=== PATIENT | female | born 1975 | race Hispanic/Latino ===

== ENCOUNTER 2020-04-23 09:14 | Outpatient (CLI) | payer OTHER, SELFPAY ==
[2020-04-23 09:37] LABS: Hemoglobin 12.7 g/dL (12.0-15.0); Mean Corpuscular HGB Conc 31.8 g/dl (32-36); Mean Corpuscular Hemoglobin 25.2 pg (26-34); Mean Corpuscular Volume 79.5 fl (80-100); Mean Platelet Volume 11.5 fl (7.4-10.4); Platelet Count Result 301 k/mm3 (150-375); Red Blood Count 5.03 M/mm3 (4.2-5.4); Red Cell Distribution Width 13.8 % (11.5-14.5); White Blood Count 11.3 K/mm3 (4.5-10.0)
[2020-04-23 09:43] LABS: Add Urine Microscopic? YES; Appearance Urine Clear (Clear); Bilirubin Urine Negative (Negative); Blood Urine 1+ (Negative); Color Urine Colorless (Yellow); Glucose Urine UA Negative (Negative); Ketones Urine Negative (Negative); Leukocyte Esterase Ur 1+ LEU/UL (NEGATIVE); Mucus Urine Rare /lpf; Nitrate Urine Negative (Negative); Protein Urine Negative (Negative); RBC Urine 0-2 /hpf (0-2); Specific Grav Ur 1.008 (1.001-1.035); Squamous Epithelial Cell Urine Many /hpf (Few); Urobilinogen Urine Negative mg/dL (<2.0); WBC Urine 0-3 /hpf (0-3)
[2020-04-23 09:47] LABS: Cholesterol 149 mg/dL (0-200); HDL Direct 33 mg/dL; Triglycerides 178 mg/dL (<150)
[2020-04-23 09:58] LABS: LDL Cholesterol Direct 80 mg/dL
[2020-04-23 10:17] LABS: Creatinine Urine 22.2 mg/dL
[2020-04-23 10:24] LABS: MALB Creatinine Ratio < 27.0 mg/g (0-30); Microalbumin Urine Random < 6.0 mg/L (0-16.7)
[2020-04-23 11:28] LABS: Hemoglobin A1C 11.1 % (<5.7)
== END 2020-04-23 09:15 | disposition home or self-care (01) ==
LOC: ANHLAB 09:21
PROVIDERS: PCP Obstetrics & Gynecology; Visit Provider Emergency Medicine
DX: D72.829 Elevated white blood cell count, unspecified (principal); E11.9 Type 2 diabetes mellitus without complications; R31.9 Hematuria, unspecified
CPT/HCPCS: 36415; 80061; 81001; 82043; 83036; 85027

== ENCOUNTER 2020-08-13 09:57 | Outpatient (CLI) | payer OTHER, SELFPAY ==
[2020-08-13 10:56] LABS: Hematocrit 39.3 % (37.0-47.0); Hemoglobin 12.6 g/dL (12.0-15.0); Mean Corpuscular HGB Conc 32.1 g/dl (32-36); Mean Corpuscular Hemoglobin 25.9 pg (26-34); Mean Corpuscular Volume 80.9 fl (80-100); Mean Platelet Volume 11.8 fl (7.4-10.4); Platelet Count Result 301 k/mm3 (150-375); Red Blood Count 4.86 M/mm3 (4.2-5.4); Red Cell Distribution Width 14.6 % (11.5-14.5); White Blood Count 10.4 K/mm3 (4.5-10.0)
[2020-08-13 11:32] LABS: Hemoglobin A1C 7.4 % (<5.7)
[2020-08-13 11:48] LABS: Creatinine Urine 34.3 mg/dL
[2020-08-13 12:50] LABS: MALB Creatinine Ratio < 17.5 mg/g (0-30); Microalbumin Urine Random < 6.0 mg/L (0-16.7)
== END 2020-08-13 09:58 | disposition home or self-care (01) ==
PROVIDERS: PCP Emergency Medicine; Visit Provider Emergency Medicine
DX: D72.829 Elevated white blood cell count, unspecified (principal); E11.9 Type 2 diabetes mellitus without complications
CPT/HCPCS: 36415; 82043; 83036; 85027

== ENCOUNTER 2020-08-20 08:47 | Outpatient (CLI) | payer OTHER, SELFPAY ==
[2020-08-20 09:27] LABS: Hematocrit 40.2 % (37.0-47.0); Hemoglobin 12.5 g/dL (12.0-15.0); Mean Corpuscular HGB Conc 31.1 g/dl (32-36); Mean Corpuscular Hemoglobin 25.7 pg (26-34); Mean Corpuscular Volume 82.7 fl (80-100); Mean Platelet Volume 11.9 fl (7.4-10.4); Platelet Count Result 318 k/mm3 (150-375); Red Blood Count 4.86 M/mm3 (4.2-5.4); Red Cell Distribution Width 14.4 % (11.5-14.5); White Blood Count 10.6 K/mm3 (4.5-10.0)
[2020-08-20 09:42] LABS: Alanine Aminotransferase 13 U/L (4-35); Albumin Level 4.5 g/dL (3.5-5.1); Alkaline Phosphatase 108 U/L (38-126); Anion Gap 9 mmol/L (8-16); Aspartate Amino Transferase 21 U/L (14-36); Bilirubin,Total 0.3 mg/dL (0.2-1.3); Blood Urea Nitrogen 19 mg/dL (7-17); Calcium 9.3 mg/dL (8.4-10.2); Carbon Dioxide 30 mmol/L (22-30); Chloride 104 mmol/L (98-107); Estimated Glomerular Filt Rate > 60; Glucose 138 mg/dL (65-105); Potassium 4.3 mmol/L (3.4-5.0); Sodium 143 mmol/L (137-145)
[2020-08-20 10:43] LABS: Hepatitis B Surface Antigen Negative (Negative)
[2020-08-20 10:52] LABS: HAV RESULT Negative (Negative); Hepatitis B Core IgM Result Negative (Negative)
[2020-08-20 11:00] LABS: Hepatitis C Virus Antibody Negative (Negative)
[2020-08-24 05:46] LABS: GGT 24 U/L (3-55)
== END 2020-08-20 08:48 | disposition home or self-care (01) ==
PROVIDERS: PCP Emergency Medicine; Visit Provider Emergency Medicine
DX: R94.5 Abnormal results of liver function studies (principal); D72.829 Elevated white blood cell count, unspecified
CPT/HCPCS: 36415; 80053; 80074; 82977; 85027

== ENCOUNTER 2020-10-16 07:58 | Outpatient (CLI) | payer OTHER, SELFPAY ==
--- NOTE | ~2020-10-16 | US_ITS ---
EXAMINATION: US right upper quadrant DATE: 10/16/2020 08:46 INDICATION: Elevated liver enzymes TECHNIQUE: Multiple grayscale and Doppler ultrasound images of the abdomen were obtained. COMPARISON: None available FINDINGS: Bowel gas obscures visualization of the pancreas. The visualized portions of the pancreas a re unremarkable. The liver is normal with normal echogenicity and echotexture. No surface nodularity. Normal hepatopetal flow in the main portal vein. The gallbladder is normal with no abnormal wall thi ckening, pericholecystic fluid or stones. The normal common bile duct measures 5 mm. There was no son ographic Alberto sign. IMPRESSION: 1. No sonographic correlate for the patient's symptoms. Reviewed, dictated and finalized at location A. CONTROL FIELD REPRESENTATIVE
== END 2020-10-16 07:59 | disposition home or self-care (01) ==
PROVIDERS: PCP Emergency Medicine; Visit Provider Emergency Medicine
DX: R94.5 Abnormal results of liver function studies (principal)
CPT/HCPCS: 76705

== ENCOUNTER 2020-11-19 07:17 | Outpatient (CLI) | payer OTHER, SELFPAY ==
[2020-11-19 07:45] LABS: Hematocrit 39.9 % (37.0-47.0); Hemoglobin 12.6 g/dL (12.0-15.0); Mean Corpuscular HGB Conc 31.6 g/dl (32-36); Mean Corpuscular Hemoglobin 25.7 pg (26-34); Mean Corpuscular Volume 81.4 fl (80-100); Mean Platelet Volume 11.5 fl (7.4-10.4); Platelet Count Result 301 k/mm3 (150-375); Red Cell Distribution Width 14.6 % (11.5-14.5); White Blood Count 11.1 K/mm3 (4.5-10.0)
[2020-11-19 07:55] LABS: Alanine Aminotransferase 13 U/L (4-35); Albumin Level 4.2 g/dL (3.5-5.1); Alkaline Phosphatase 104 U/L (38-126); Anion Gap 4 mmol/L (8-16); Aspartate Amino Transferase 21 U/L (14-36); Bilirubin,Total 0.4 mg/dL (0.2-1.3); Blood Urea Nitrogen 10 mg/dL (7-17); Calcium 9.3 mg/dL (8.4-10.2); Carbon Dioxide 32 mmol/L (22-30); Chloride 102 mmol/L (98-107); Estimated Glomerular Filt Rate > 60; Glucose 180 mg/dL (65-105); Potassium 4.4 mmol/L (3.4-5.0); Sodium 138 mmol/L (137-145)
[2020-11-19 08:52] LABS: Hepatitis B Surface Antigen Negative (Negative)
[2020-11-19 08:58] LABS: HAV RESULT Negative (Negative); Hepatitis B Core IgM Result Negative (Negative)
[2020-11-19 09:10] LABS: Hepatitis C Virus Antibody Negative (Negative)
== END 2020-11-19 07:18 | disposition home or self-care (01) ==
LOC: ANHLAB 07:20
PROVIDERS: PCP Emergency Medicine; Visit Provider Emergency Medicine
DX: R94.5 Abnormal results of liver function studies (principal); D72.829 Elevated white blood cell count, unspecified
CPT/HCPCS: 36415; 80053; 80074; 85027

== ENCOUNTER → 2021-11-07 15:20 | Outpatient (CLI) | payer OTHER, SELFPAY ==
--- NOTE | ~2021-11-07 | MM_ITS ---
EXAMINATION: MM screening adam BI w kelley HISTORY: Screening mammogram TECHNIQUE: Craniocaudal and mediolateral oblique 3-D tomosynthesis images were obtained and synthetic 2-D images were generated. CAD analysis was submitted and interpreted. COMPARISON: No prior mammogram is available for comparison at this institution. BREAST PARENCHYMAL COMPOSITION: There are scattered areas of fibroglandular density. FINDINGS: RIGHT BREAST: An asymmetry is present in the anterior/middle third of the outer breast 5 cm from the nipple on the craniocaudal view. LEFT BREAST: There is focal asymmetry in the posterior third of the outer breast. IMPRESSION: 1. Bilateral breast findings as described above which may represent the patient's baseline however no comparison is currently available. 2. Comparison with prior mammograms is necessary. BI-RADS Category 0: Incomplete: Needs comparison with prior mammograms. Reviewed, dictated and finalized at location A. TAL SOLUTION ARCHITECT IMPRESSION: 1. Bilateral breast findings as described above which may represent the patient 's baseline however no comparison is currently available. 2. Comparison with prior mammograms is necessary. BI-RADS Category 0: Incomplete: Needs comparison with prior mammograms.
== END ==
PROVIDERS: Visit Provider Obstetrics & Gynecology
DX: Z12.31 Encounter for screening mammogram for malignant neoplasm of breast (principal); R92.8 Other abnormal and inconclusive findings on diagnostic imaging of breast
CPT/HCPCS: 77063; 77067

== ENCOUNTER 2022-02-03 07:43 | Outpatient (CLI) | payer OTHER, SELFPAY ==
[2022-02-03 08:21] LABS: Hematocrit 43.3 % (37.0-47.0); Hemoglobin 13.6 g/dL (12.0-15.0); Mean Corpuscular HGB Conc 31.4 g/dl (32-36); Mean Corpuscular Hemoglobin 25.7 pg (26-34); Mean Corpuscular Volume 81.9 fl (80-100); Mean Platelet Volume 11.9 fl (7.4-10.4); Platelet Count Result 288 k/mm3 (150-375); Red Blood Count 5.29 M/mm3 (4.2-5.4); Red Cell Distribution Width 14.1 % (11.5-14.5); White Blood Count 10.4 K/mm3 (4.5-10.0)
[2022-02-03 08:28] LABS: Alanine Aminotransferase 12 U/L (4-35); Albumin Level 4.4 g/dL (3.5-5.1); Alkaline Phosphatase 155 U/L (38-126); Anion Gap 6 mmol/L (8-16); Aspartate Amino Transferase 19 U/L (14-36); Bilirubin,Total 0.4 mg/dL (0.2-1.3); Blood Urea Nitrogen 14 mg/dL (7-17); Calcium 9.2 mg/dL (8.4-10.2); Carbon Dioxide 30 mmol/L (22-30); Chloride 97 mmol/L (98-107); Cholesterol 251 mg/dL (0-200); Estimated Glomerular Filt Rate > 60; Glucose 290 mg/dL (65-110); HDL Direct 39 mg/dL; Potassium 4.2 mmol/L (3.4-5.0); Sodium 133 mmol/L (137-145); Triglycerides 354 mg/dL (<150)
[2022-02-03 08:34] LABS: Add Urine Microscopic? YES; Appearance Urine Cloudy (Clear); Bacteria Urine Trace /hpf; Bilirubin Urine Negative (Negative); Blood Urine 1+ (Negative); Color Urine Straw (Yellow); Glucose Urine UA 3+ mg/dL (Negative); Ketones Urine Negative (Negative); Leukocyte Esterase Ur 2+ LEU/UL (NEGATIVE); Mucus Urine Rare /lpf; Nitrate Urine Negative (Negative); Protein Urine Negative (Negative); Specific Grav Ur 1.011 (1.001-1.035); Squamous Epithelial Cell Urine Many /hpf (Few); Urobilinogen Urine Negative mg/dL (<2.0)
[2022-02-03 08:37] LABS: MALB Creatinine Ratio 39.3 mg/g (0-30)
[2022-02-03 08:39] LABS: LDL Cholesterol Direct 130 mg/dL
[2022-02-03 09:06] LABS: Hemoglobin A1C 12.4 % (<5.7)
[2022-02-03 09:36] LABS: Free T4 Free Thyroxine 1.25 ng/mL (0.78-2.19); Vitamin D 25 Hydroxy 31.6 ng/mL
== END 2022-02-03 07:44 | disposition home or self-care (01) ==
LOC: ANHLAB 07:45
PROVIDERS: Visit Provider Emergency Medicine
DX: Z00.00 Encounter for general adult medical examination without abnormal findings (principal); E11.9 Type 2 diabetes mellitus without complications; I10 Essential (primary) hypertension; E78.5 Hyperlipidemia, unspecified; D72.829 Elevated white blood cell count, unspecified; E55.9 Vitamin D deficiency, unspecified
CPT/HCPCS: 36415; 80053; 80061; 81001; 82043; 82306; 83036; 84439; 84443; 85027; 87086; 87088

== ENCOUNTER → 2022-03-17 08:22 | Outpatient (CLI) | payer OTHER, SELFPAY ==
--- NOTE | ~2022-03-17 | US_ITS ---
EXAMINATION: US right upper quadrant DATE: 03/17/2022 08:54 INDICATION: Elevated liver enzymes. TECHNIQUE: Multiple grayscale and Doppler ultrasound images of the right upper quadrant were obtained . COMPARISON: None available FINDINGS: Visualized portions of the pancreas are normal. The liver is normal with normal echogenicit y and echotexture. No surface nodularity. Normal hepatopetal flow in the main portal vein. The gallbl adder is normal with no abnormal wall thickening, pericholecystic fluid or stones. The normal common bile duct measures 0.4 cm. There was no sonographic Alberto sign. The visualized portions of the aorta and inferior vena cava are normal. The right kidney measures 11.5 cm. IMPRESSION: 1. Normal right upper quadrant sonogram findings. Reviewed, dictated and finalized at location K.
== END ==
PROVIDERS: PCP Emergency Medicine; Visit Provider Emergency Medicine
DX: R74.01 Elevation of levels of liver transaminase levels (principal)
CPT/HCPCS: 76705

== ENCOUNTER 2022-03-17 08:59 | Outpatient (CLI) | payer OTHER, SELFPAY ==
[2022-03-17 09:26] LABS: Hematocrit 37.5 % (37.0-47.0); Hemoglobin 11.9 g/dL (12.0-15.0); Mean Corpuscular HGB Conc 31.7 g/dl (32-36); Mean Corpuscular Hemoglobin 25.8 pg (26-34); Mean Corpuscular Volume 81.2 fl (80-100); Mean Platelet Volume 11.3 fl (7.4-10.4); Platelet Count Result 333 k/mm3 (150-375); Red Blood Count 4.62 M/mm3 (4.2-5.4); Red Cell Distribution Width 13.7 % (11.5-14.5); White Blood Count 10.6 K/mm3 (4.5-10.0)
[2022-03-17 09:46] LABS: Add Urine Microscopic? YES; Appearance Urine Clear (Clear); Bilirubin Urine Negative (Negative); Blood Urine 1+ (Negative); Color Urine Yellow (Yellow); Glucose Urine UA 2+ mg/dL (Negative); Ketones Urine Negative (Negative); Leukocyte Esterase Ur 2+ LEU/UL (NEGATIVE); Nitrate Urine Negative (Negative); Protein Urine Negative (Negative); Urobilinogen Urine 0.2 mg/dL (<2.0)
[2022-03-17 09:53] LABS: Bacteria Urine Trace /hpf; Mucus Urine Rare /lpf; Squamous Epithelial Cell Urine Many /hpf (Few)
[2022-03-17 10:26] LABS: Hepatitis B Surface Antigen Negative (Negative)
[2022-03-17 10:32] LABS: HAV RESULT Negative (Negative); Hepatitis B Core IgM Result Negative (Negative)
[2022-03-17 10:44] LABS: Hepatitis C Virus Antibody Negative (Negative)
== END 2022-03-17 09:00 | disposition home or self-care (01) ==
LOC: ANHLAB 09:01
PROVIDERS: PCP Emergency Medicine; Visit Provider Emergency Medicine
DX: R94.5 Abnormal results of liver function studies (principal)
CPT/HCPCS: 36415; 80074; 81001; 85027

== ENCOUNTER 2023-01-08 14:45 | Outpatient (CLI) | payer OTHER, SELFPAY ==
[2023-01-08 15:11] LABS: Basophils Absolute Auto 0.1 K/mm3 (0.0-0.1); Basophils Percent Auto 0.5 % (0.2-1.2); Eosinophils Absolute Auto 0.2 K/mm3 (0-0.3); Eosinophils Percent Auto 1.6 % (0-4.4); Hematocrit 40.8 % (37.0-47.0); Hemoglobin 12.9 g/dL (12.0-15.0); Immature Granulocyte Absolute 0.04 K/mm3 (0.00-0.031); Immature Granulocyte Percent A 0.3 % (0-0.5); Lymphocytes Absolute Auto 2.71 K/mm3 (0.9-3.2); Lymphocytes Percent Auto 23.7 % (18.3-44.2); Mean Corpuscular HGB Conc 31.6 g/dl (32-36); Mean Corpuscular Hemoglobin 25.5 pg (26-34); Mean Corpuscular Volume 80.8 fl (80-100); Monocytes Absolute Auto 0.8 K/mm3 (0.1-0.6); Monocytes Percent Auto 6.6 % (2.6-8.5); Neutrophils Absolute Auto 7.7 K/mm3 (1.3-6.7); Neutrophils Percent Auto 67.3 % (45.5-73.1); Platelet Count Result 319 k/mm3 (150-375); Red Blood Count 5.05 M/mm3 (4.2-5.4); Red Cell Distribution Width 14.6 % (11.5-14.5); White Blood Count 11.4 K/mm3 (4.5-10.0)
[2023-01-08 16:59] LABS: Alanine Aminotransferase 19 U/L (6-35); Albumin Level 4.6 g/dL (3.5-5.1); Alkaline Phosphatase 103 U/L (38-126); Anion Gap 11 mmol/L (8-16); Aspartate Amino Transferase 27 U/L (14-36); Bilirubin,Total 0.3 mg/dL (0.2-1.3); Blood Urea Nitrogen 22 mg/dL (7-17); CRP 1.7 mg/dL (<1.0); Calcium 9.3 mg/dL (8.4-10.2); Carbon Dioxide 28 mmol/L (22-30); Chloride 100 mmol/L (98-107); Estimated Glomerular Filt Rate > 60; Glucose 122 mg/dL (65-110); Potassium 3.8 mmol/L (3.4-5.0); Sodium 139 mmol/L (137-145)
[2023-01-08 17:08] LABS: Erythrocyte Sedimentation Rate 13 mm/hr (0-20)
== END 2023-01-08 14:46 | disposition home or self-care (01) ==
LOC: ANHLAB 14:48
PROVIDERS: PCP Emergency Medicine; Visit Provider Internal Medicine Hematology & Oncology
DX: D72.829 Elevated white blood cell count, unspecified (principal)
CPT/HCPCS: 36415; 80053; 85025; 85652; 86140; 88184

== ENCOUNTER 2025-04-17 07:44 | Outpatient (CLI) | payer OTHER, SELFPAY ==
--- OUTSIDE RECORDS SUMMARY | 2025-04-17 07:48 | XMS_ITS | Clinical Summary ---
Author Organization [facility] Address [address] [place] [id number] Phone Care Team Providers Care Sagger Maker Name Role Phone Tobias Ackerman MD Primary Care Provider [phone] Allergies No known active allergies Medications Iron, Ferrous Sulfate, 325 (65 Fe) MG tablet Take 35 mg by mouth daily Active aspirin (ST MIMA) 81 MG EC tablet Take 81 mg by mouth daily Active isosorbide mononitrate (IMDUR) 30 MG 24 hr tablet TAKE 1 TABLET BY MOUTH ONCE DAILY IN THE MORNING 2 Active fenofibrate (TRICOR) 145 MG tablet Take 145 mg by mouth 1 (one) time each day 2 Active Dapagliflozin Propanediol 10 MG tablet Take 10 mg by mouth daily Active simvastatin (ZOCOR) 40 MG tablet Take 40 mg by mouth every night Active albuterol HFA (PROVENTIL HFA) 108 (90 Base) MCG/ACT inhaler Inhale 2 puffs every 6 (six) hours if needed for wheezing Active lisinopril-hydro CHLOROthiazide (PRINZIDE) 20-25 MG per tablet Take 1 tablet by mouth 1 (one) time each day Active Vitamin D, Cholecalciferol, 50 MCG (2000 UT) capsule Take by mouth daily Active metFORMIN (GLUCOPHAGE) 1000 MG tablet Take 1,000 mg by mouth in the morning and 1,000 mg in the evening. Take with meals. Active carvedilol (COREG) 25 MG tablet Take 25 mg by mouth in the morning and 25 mg in the evening. Take with meals. Active Active Problems Problem Noted Date Diagnosed Date Anemia in chronic kidney disease 12/18/2022 Proteinuria 06/02/2020 Diabetes mellitus 05/02/2020 Vitamin D deficiency Chronic kidney disease stage 2 Essential hypertension Resolved Problems Problem Noted Date Diagnosed Date Resolved Date Hyperlipidemia 05/02/2020 12/18/2022 Social History Tobacco Use Types Packs/Day Years Used Date Smoking Tobacco: Never Smokeless Tobacco: Never Tobacco Cessation:Counseling Given: Not Answered Alcohol Use Standard Drinks/Week Comments Never 0 (1 standard drink = 0.6 oz pur e alcohol) Comments Unknown Sex and Gender Information Value Date Recorded Sex Assigned at Not on file Legal Sex Female 1:40 PM MDT Gender Identity Not on file Sexual Orientation Not on file Last Filed Vital Signs Vital Sign Reading Time Taken Comments Blood Pressure 132/68 07/30/2023 4:51 PM CDT Pulse 64 07/30/2023 4:51 PM CDT Temperature - - Respiratory Rate - - Oxygen Saturation 94% 07/30/2023 4:51 PM CDT Inhaled Oxygen Concentration - - Weight 64.9 kg (143 lb) 07/30/2023 4:51 PM CDT Height 149.9 cm (4' 11) 07/30/2023 4:51 PM CDT Body Mass Index 28.88 07/30/2023 4:51 PM CDT Plan of Treatment Health Maintenance Due Date Last Done Comments Diabetic Foot Exam 1984 Ophthalmology Exam 1984 Pneumococcal PPSV23 Highest Risk Adult (1 of 3 - PCV13 ) 1993 Influenza Vaccine (Season Ended) 2025 Insurance Care Teams Sagger Maker Relationship Specialty Start Date End Date Tobias Ackerman MD PCP - General 03/13/22
--- OUTSIDE RECORDS SUMMARY | 2025-04-17 07:48 | XMS_ITS | Clinical Summary ---
[facility] Organization [facility] [address] [place] [address] Care Team Providers Care Mine Safety Director Name Role Phone Tobias Ackerman MD Primary Care Provider [phone] Allergies No known active allergies Medications isosorbide mononitrate ER (IMDUR) 30 mg 24 hr tablet Take 30 mg by mouth daily. Active ferrous sulfate 325 mg (65 mg of elemental iron) tabletIndication s:Iron Deficiency Anemia Take 65 mg of elemental iron by mouth daily with breakfast. Active lisinopril-hydro CHLOROthiazide (PRINZIDE,ZESTOR ETIC) 20-25 mg per tabletIndication s:hypertension Take 1 tablet by mouth daily. Active metFORMIN (GLUCOPHAGE) 500 mg tablet Take 500 mg by mouth 2 (two) times a day with meals. Active aspirin 81 mg tablet Take 81 mg by mouth daily. Active HYDROcodone-acet aminophen (NORCO) 5-325 mg per tabletIndication s:Pain Take 1 tablet by mouth every 4 (four) hours as needed for pain. 15 tablet 8 Active Additional Information Patient not taking.Reported on 03/03/2018 Active Problems Problem Noted Date Diagnosed Date Umbilical hernia with obstruction, without gangr jennifer 02/20/2018 Overview (02/20/2018): Added automatically from request for surgery [id number] Surgical History Surgery Date Site/Laterality Comments SECTION 3 children TUBAL LIGATION HERNIA REPAIR 02/24/[address] repair per Dr. Sheehan. Medical History Medical History Date Comments Asthma Diabetes mellitus (HCC) Hypertension Family History Medical History Relation Name Comments No Known Problems Mother Relation Name Status Comments Mother Alive Social History Tobacco Use Types Packs/Day Years Used Date Smoking Tobacco: Never Smokeless Tobacco: Never Alcohol Use Standard Drinks/Week Comments Yes 0 (1 standard drink = 0.6 oz pur e alcohol) social Comments No Sex and Gender Information Value Date Recorded Sex Assigned at Not on file Legal Sex Female 1:18 PM CDT Gender Identity Not on file Sexual Orientation Not on file Obstetrics History Last Filed Vital Signs Vital Sign Reading Time Taken Comments Blood Pressure 155/99 09/02/2021 11:04 PM CDT Pulse 111 09/02/2021 11:04 PM CDT Temperature 36.9 C (98.5 F) 09/02/2021 11:04 PM CDT Respiratory Rate 20 09/02/2021 11:04 PM CDT Oxygen Saturation 94% 09/02/2021 11:04 PM CDT Inhaled Oxygen Concentration - - Weight 64.4 kg (142 lb) 09/02/2021 11:04 PM CDT Height 152.4 cm (5') 09/02/2021 11:04 PM CDT Body Mass Index 27.73 09/02/2021 11:04 PM CDT Plan of Treatment Health Maintenance Due Date Last Done Comments Cervical Cancer Screening 1974 Colon Cancer Screening-Colonoscopy 1974 Depression Screening 1974 Hepatitis C Screening 1974 Hepatitis B Screening 1992 Regular Well Visit/Exam 18-64 1992 Breast Cancer Screening-Mammogram 03/22/2024 03/22/2023, 11/13/2021, 11/10/2021, Additional history exists Covid-19 Vaccine (2 - 2023-2 5 season) 2024 09/16/2021 Zoster Vaccine (1 of 2) 2024 Influenza Vaccine (Season Ended) 2025 10/08/2016, 09/07/2015, 08/23/2015, Additional history exists DTaP/Tdap/Td Vaccine (3 - Td or Tdap) 05/08/2027 05/08/2017, 04/08/2007 Pneumococcal vaccine <65 Completed 022, 08/12/2013, 11/05/2012, Additional history exists Medical Devices Implanted Type Area National Facilities Manager Device Identifier Shelf Expiration Date Model / Serial / Lot Patch Surgical Ventralex St Sepra Sorbaflex Polypropylene Hydrogel Large [place] Od3.2 In Spring Open Bioresorbable Strap Tension Free Sterile Umbilical Hernia Repair - [id number] Implanted:Qty: 1 on 02/24/2018 by Juliet Sheehan MD at [facility] N/A: Abdomen [employer]/C R Bard 01/01/2020 [id number] / / [id number] Insurance OPEN ACCESS [facility] CHOICE PLUS Care Teams Mine Safety Director Relationship Specialty Start Date End Date Tobias Ackerman MD PCP - General 02/06/20
--- OUTSIDE RECORDS SUMMARY | 2025-04-17 07:48 | XMS_ITS | Encounter Summary ---
Author Organization [facility] Address [address] [place] [address] Care Team Providers Care Firing Pin Gauger Name Role Phone Tobias Ackerman MD Primary Care Provider [phone] Reason for Visit * Reason Onset Date Comments Pre-op Clearance 10/01/2023 Encounter Details Date Type Department Care Team (Late st Contact Info) Description 10/01/2023 Telephone [facility] - SENIOR C[facility] MANAGER [address] [place] [address] Juliet West MD [address] [place] [address] Pre-op Clearance Social History Tobacco Use Types Packs/Day Years Used Date Smoking Tobacco: Never Passive Smoke Exposure: Never Smokeless Tobacco: Never Alcohol Use Standard Drinks/Week Comments Not Currently 0 (1 standard drink = 0.6 oz pur e alcohol) PHQ-2 Answer Date Recorded PHQ2 TOTAL SCORE 0 02/14/2023 Comments No Sex and Gender Information Value Date Recorded Sex Assigned at Not on file Legal Sex Female 9:35 AM PSYCHIATRIC NURSE PRACTITIONER Gender Identity Not on file Sexual Orientation Not on file documented as of this encounter Miscellaneous Notes * Telephone Encounter - LizastephAlysa - 10/01/2023 9:07 AM CST I called and left a message at Dr Colin Rosa office to follow up on a medical clearance request for patient surgery for 10/08/[address] West[address]I have requested a call back Patient has an appointment at [facility] for today for her pre op labs HIATRIC NURSE PRACTITIONER documented in this encounter Plan of Treatment Not on file documented as of this encounter Visit Diagnoses Not on filedocumented in this encounter Care Teams Firing Pin Gauger Relationship Specialty Start Date End Date Tobias Ackerman MD [address] [place] [id number] PCP - General 05/04/20 documented as of this encounter
--- OUTSIDE RECORDS SUMMARY | 2025-04-17 07:48 | XMS_ITS | Data Portability ---
Author Organization [facility] [place] Address [address] [place] [address] [address] Care Team Providers Care Strategic Marketing Specialist Name Role Phone HUNTER GASTELUM Primary Care Provider Assessment Encounter Date Assessment Date Assessment LastModified by Organization Details LastModified Time 08/21/2021 08/21/2021 healthy female exam/menopause patient declinesstd testing pap done mammogram ordered and encouraged colonoscopy discussed and encouraged, have name from PCP dexa baseline around 54 since early menopause Encouraged weight bearing exercise and 1500mg daily of Calcium with Vitamin D plans to return to [facility] for treatment of procidentia, encouraged this. FU 1 year or prn [id number] Not available 08/21/2021 18:19:31 12/26/2022 12/26/2022 healthy female exam/menopause patient declines std testing pap next year mammogram ordered and encouraged colonoscopy due 2031 dexa baseline 55-60 (early menopause) Encouraged weight bearing exercise and 1500mg daily of Calcium with Vitamin D referral back to u urogyn FU 1 year or prn [email or web address] Not available 12/26/2022 15:58:38 02/27/2024 02/27/2024 Annual gynecological exam performed. Patient will come back in a year unless there are new symptoms. Not available 02/27/2024 18:28:39 Plan of Treatment Reminders Order Date Submit Date Provider Last Modified By Organization Details Last Modified Time Details Appointments None recorded. Lab None recorded. Referral None recorded. Procedures None recorded. Surgeries None recorded. Imaging MAMMO, screening, bilateral 2023 024 [facility], [address], [address], [place], [address], 4 10:04:20 Medication Orders None recorded. Patient TargetsNo targets recorded. Patient InstructionsNo instructions recorded. Reason for Referral None Reported. Results Created Date Observation Date Name Description Value Unit Range Abnormal Flag Note LastModifiedBy Organization Detail LastModifiedTime 08/21/20 21 08/21/2021 IMAGE GUIDE D PAP AND HPV REGAR DLESS image guided Pap, HPV regardless of Pap result SEE RESULT S BELOW CASE REPOR T: Cytol ogy Gynec ologi ilan Repor t Case: [id number] [place] anand Provi naomi: Cally Oconnor MD Colle cted: 08/21 1716 Order ing Locat ion: [place] [facility] Recei antonietta: 08/22 0031 First Scree n: Heather Kowalski, CT Speci men: Scree christopher Pap - Image d, Cervi x STATE MENT OF ADEQU ACY: Satis facto ry for evalu ation Trans forma tion zone compo nent prese nt FINAL DIAGN OSIS: Negat rina for Intra epith elial Lesio n or Flako zamarripa (NIL) . Elect olive ricketts d by Heather Kowalski, CT on 08/25 at 4:11 PM ----- ----- ----- ----- ----- ----- ----- ----- ----- ----- ----- ----- ----- ----- ----- ----- ----- ---- HPV RESUL TS: HPV mRNA E6/E7 : No HPV mRNA Detec goldie NOTE: This high risk HPV mRNA assay detec ts fourt een high- risk HPV types (16, 18, 31, 33, 35, 39, 45, 51, 52, 56, 58, 59, 66, 68) witho ut diffe renti ation . COMME NT: Note: This speci men was revie wed by a Cytot echno logis t and/o r Patho logis t (as indic ated in this repor t) after evalu ation using the Thinp rep Imagi ng Syste m. CLINI ILAN INFOR MATIO N: Menst rual Statu s: LMP (if appli cable ): Clini ilan Histo ry/Pr eviou s Pap: Type of Neopl lisa (if appli cable ): Signi fican t Clini ilan Findi ngs: Other Histo ry: Hormo loly (if appli cable ): PAP EDUCA JULIAN L NOTE: The Pap Test is a scree christopher test with an inher ent false negat rina rate. Liqui d-bas e sampl ing may decre ase, but will not elimi crescencio, false negat rina resul ts. A negat rina resul t does not precl ude the prese nce and/o r devel opmen t of disea se, since the prese nce of abnor mal cells in the sampl e depen ds on the locat ion of the lesio n and sampl ing techn ique. [place] nued regul ar scree christopher is the best metho d of cance r preve ntion . If repor goldie cytol ogic findi ng do not corre late with physi ilan and/o r histo rical findi ngs, furth er inves tigat ion is recom suma d, as clini estephania bennett nted. Not Available [facility] (Lab) [address], [place], [address], 08/25/2021 17:14:03 11/08/19 22 11/07/2021 MAMMO , scree christopher, bilat eral No observ ation [facility] ed. [facility] [address], [place], [address], 11/14/2021 17:02:21 11/08/19 22 11/07/2021 MAMMO , scree christopher, bilat eral No observ ation record ed. greta [facility] [address], [place], [address], 11/08/2021 11:53:24 11/10/19 22 11/07/2021 MAMMO , scree christopher, bilat eral No observ [facility]ion [facility]. [facility] [address], [place], [address], 11/15/2021 16:18:28 11/13/19 22 11/07/2021 MAMMO , scree christopher, bilat eral No observ ation record ed. [email or web address] [facility] [address] [facility] [address], [place], [address], 11/14/2021 10:15:21 03/22/20 23 03/21/2023 MAMMO , scree christopher, bilat eral No observ ation record ed. [email or web address], [place], [address], 03/22/2023 10:10:20 Result Notes Documentation Provider Name and Address Organization Details Recorded Time Mammo, Screening, Bilateral : will have shireen call pt. speaks upper sorbian. L Jocelyn almanzar, [facility] 11/14/2021 17:02:21 Problems Name Problem SNOMED Code Status Onset Date Resolution Date Notes Provider Name and Address Organization Details Recorded Time Type 2 diabetes mellitus 12160338 Active 2020 Kristina almanzar, [facility] 3 21:43:23 Essential hypertensi on 09265768 Active 2020 Kristina mccloud null, [facility] 3 21:43:23 Third degree uterine prolapse 32081449 Active 2020 total procidentia Kristina mccloud null, [facility] 3 21:43:23 Problem Notes None recorded. Procedures Surgical History Date Name Laterality Status Provider Name and Address Organization Details Recorded Time 03/04/20 Date of Last Colonoscopy completed [facility] 12/26/2022 15:31:26 11/07/19 22 Date of Last Mammogram completed [facility] 12/26/2022 15:31:14 08/21/20 21 Date of Last Pap Smear completed [facility] 12/26/2022 09:40:12 delivery completed Cally Pascual MD [address], [place], [address], [facility] 08/21/2021 18:19:43 repair of hernia of anterior abdominal wall completed Cally Pascual MD [address], [place], [address], [facility] 08/21/2021 18:20:02 Imaging Results None recorded. Procedure Notes None recorded. Medical Equipment None Reported. Allergies No known drug allergies Medications Name Sig Start Date Stop Date Status Note LastModified by Organization Details LastModified Time amoxicillin 500 mg capsule TAKE 1 CAPSULE BY MOUTH EVERY 6 HOURS 02/26 completed Not Available Not Available Not Available metformin 500 mg tablet TAKE 2 TABLETS BY MOUTH TWICE DAILY WITH MORNING MEAL AND WITH EVENING MEAL active Not Available Not Available No t Available fluticasone 250 mcg-salmete rol 50 mcg/dose blistr powdr for inhalation INHALE 1 DOSE BY MOUTH TWICE DAILY active Not Available Not Available No t Available carvedilol 25 mg tablet TAKE 1 TABLET BY MOUTH TWICE DAILY WITH FOOD active Not Available Not Available No t Available glipizide ER 10 mg tablet, extended release 24 hr TAKE 1 TABLET BY MOUTH ONCE DAILY WITH BREAKFAST 02/26 completed Not Available Not Available Not Available isosorbide mononitrate ER 30 mg tablet,exte nded release 24 hr TAKE 1 TABLET BY MOUTH ONCE DAILY IN THE MORNING 02/26 completed Not Available Not Available Not Available peg-electro lyte solution 420 gram oral solution USE DIRECTED BY OFFICE 02/26 completed Not Available Not Available Not Available simvastatin 40 mg tablet TAKE 1 TABLET BY MOUTH ONCE DAILY IN THE EVENING active Not Available Not Available No t Available metformin 1,000 mg tablet TAKE 1 TABLET BY MOUTH TWICE DAILY WITH MEALS 02/26 completed Not Available Not Available Not Available promethazin e 25 mg tablet TAKE 1/2 (ONE-HALF ) TABLET BY MOUTH EVERY 6 HOURS NEEDED FOR NAUSEA 02/26 completed Not Available Not Available Not Available lisinopril 20 mg-hydrochl orothiazide 25 mg tablet TAKE 1 TABLET BY MOUTH ONCE DAILY active Not Available Not Available No t Available albuterol sulfate HFA 90 mcg/actuati on aerosol inhaler INHALE 2 PUFFS BY MOUTH EVERY 6 HOURS NEEDED active Not Available Not Available No t Available ferrous sulfate 325 mg (65 mg iron) tablet,hilary yed release TAKE 1 TABLET BY MOUTH ONCE DAILY 02/26 completed Not Available Not Available Not Available nitrofurant oin monohydrate /macrocryst als 100 mg capsule TAKE 1 CAPSULE BY MOUTH EVERY 12 HOURS WITH FOOD FOR 7 DAYS 02/26 completed Not Available Not Available Not Available aspirin 12/26 completed Not Available Not Available Not Available ferrous sulfate 02/26 completed Not Available Not Available Not Available carvedilol 02/26 completed Not Available Not Available Not Available simvastatin 02/26 completed Not Available Not Available Not Available lisinopril 02/26 completed Not Available Not Available Not Available glipizide 02/26 completed Not Available Not Available Not Available isosorbide 02/26 completed Not Available Not Available Not Available Vitamin D3 active Not Available Not Av ailable Not Available metformin 02/26 completed Not Available Not Available Not Available fenofibrate 02/26 completed Not Available Not Available Not Available fenofibrate nanocrystal lized 145 mg tablet TAKE 1 TABLET BY MOUTH ONCE DAILY 02/26 completed Not Available Not Available Not Available Januvia 25 mg tablet TAKE 1 TABLET BY MOUTH ONCE DAILY 02/26 completed Not Available Not Available Not Available Januvia 100 mg tablet TAKE 1 TABLET BY MOUTH ONCE DAILY 02/26 completed Not Available Not Available Not Available Januvia 02/26 completed Not Available Not Available Not Available Tradjenta 5 mg tablet TAKE 1 TABLET BY MOUTH ONCE DAILY active Not Available Not Available No t Available Farxiga 10 mg tablet TAKE 1 TABLET BY MOUTH ONCE DAILY IN THE MORNING 04/25 /2024 completed Not Available Not Available Not Available Farxiga 5 mg tablet TAKE 1 TABLET BY MOUTH ONCE DAILY 02/26 completed Not Available Not Available Not Available Farxiga 02/26 completed Not Available Not Available Not Available Jardiance 25 mg tablet TAKE 1 TABLET BY MOUTH ONCE DAILY 02/26 completed Not Available Not Available Not Available Jinnyagljose KwikPen U-100 Insulin 100 unit/mL (3 mL) subcutaneou s INJECT 10 UNITS SUBCUTANE OUSLY EVERY DAY AT BEDTIME 02/26 completed Not Available Not Available Not Available pen needle, diabetic 31 gauge x 15/64 USE DIRECTED TWICE DAILY TO CHECK BLOOD SUGAR 02/26 completed Not Available Not Available Not Available Vitals Date Recorded Body height Body mass index (BMI) Body weight Systolic blood pressure Diastolic blood pressure Provider Name and Address Organization Details Last Updated DateTime 12/26/2022 152.4 cm 28.3 kg/m2 56653.89 g 125 mm[Hg] 78 mm[Hg] Lissy [facility] 3 15:29:34 Date Recorded Body height Body mass index (BMI) Body weight Systolic blood pressure Diastolic blood pressure Provider Name and Address Organization Details Last Updated DateTime 02/27/2024 152.4 cm 28.7 kg/m2 53607.08 g 131 mm[Hg] 81 mm[Hg] Arti Dykes [facility] 4 18:29:03 Date Recorded Body height Body mass index (BMI) Body weight Systolic blood pressure Diastolic blood pressure Provider Name and Address Organization Details Last Updated DateTime 08/21/2021 152.4 cm 27.7 kg/m2 99990.12 g 110 mm[Hg] 70 mm[Hg] Lissy [facility] 1 17:42:54 Social History Question Answer Notes LastModified by Organizat ion Details LastModified Time Tobacco Smoking Status Never Smoker Lissy [facility] 08/21/2021 17:32:27 Are You Blind Or Do You Have Difficulty Seeing? No Information n ot available 02/27/2024 What Is Your Level Of Caffeine Consumption? Moderate Information not available 02/27/2024 How Much Tobacco Do You Chew? None Information not available 02/27/2024 In The 14 Days Before Symptom Onset, Have You Had Close Contact With A Laboratory-confirm ed COVID-19 While That Case Was Ill? No Information n ot available 02/27/2024 In The 14 Days Before Symptom Onset, Have You Had Close Contact With A Person Who Is Under Investigation For COVID-19 While That Person Was Ill? No Information not available 02/27/2024 Have You Been To An Area Known To Be High Risk For COVID-19? No Information not available 02/27/2024 Are You Deaf Or Do You Have Serious Difficulty Hearing? No Information not available 02/27/2024 What Type Of Diet Are You Following? REGULAR Information n ot available 02/27/2024 What Is The Highest Grade Or Level Of School You Have Completed Or The Highest Degree You Have Received? [id number] Information not available 02/27/2024 Are There Any Guns Present In Your Home? No Information not available 02/27/2024 Do You Use Your Seat Belt Or Car Seat Routinely? Yes Information not available 02/27/2024 Do You Have Smoke And Carbon Monoxide Detectors In Your Home? Yes Information not available 02/27/2024 How Much Tobacco Do You Smoke? No Information not available 02/27/2024 Do You Use Sunscreen Routinely? Yes Information not available 02/27/2024 Has Tobacco Cessation Counseling Been Provided? No Information not available 08/21/2021 Have You Used IV Drugs? No Information not available 02/27/2024 Sex: Unknown Functional Status Question Answer Note LastModified by Organizat ion Details LastModified Time Do you use any illicit or recreational drugs? No Information not available 08/21/2021 Do you or have you ever used any other forms of tobacco or nicotine? No Information not available 08/21/2021 What is your level of alcohol consumption? None Information not available 08/21/2021 Are you able to walk? YESWOREST Information not available 02/27/2024 What is your exercise level? Occasional Information not available 02/27/2024 Mental Status Question Answer Note LastModified by Organization D etails LastModified Time Do you feel stressed (tense, restless, nervous, or anxious, or unable to sleep at night)? [id number] Information not available 02/27/2024 Family History Nothing Reported. Medical History Condition Response Allergies (Food, seasonal, environmental ) N Other N Drug/Latex Allergies/Reactions N Breast Cancer N Blood Transfusion N Dermatologic Disorders N Lung Disease N Defects or Inherited Disease N Breast Problem N Gestational Diabetes N Hematologic disorders N Anesthesia Complications N History of STI N Deep Vein Thrombosis N Polycystic ovary syndrome N Anxiety Disorder N Autoimmune disease N Arthritis N Polyps N Infertility N Acid Reflux (GERD) N History of abnormal pap N Cancer N Varicosities N Stroke N Neurologic/Epilepsy N Endometriosis N High Cholesterol N Fibromyalgia N Headaches N Kidney Disease N Heart Problems N Thyroid Problems N Kidney or Bladder Problems N GI Problems N Eating Disorder N Anemia N Art (IVF or FET) N Psychiatric Illness N Ovarian Cancer N Diabetes Y Pulmonary (TB, Asthma) N Hepatitis/Liver Disease N No Past Medical History N Eczema N Urinary Tract Infection N Abuse/Domestic Violence N Asthma N Trauma/Violence N Depression/ depression N Heart Disease N Pre-Eclampsia N Hypertension Y Osteoporosis N Thrombophilias N Gynecological History Statement/Question Response If Post Menopausal, Age at Menopause 47 Abnormal Pap N Date of Last Colonoscopy 03/04/2022 Date of Last Mammogram 11/07/2021 Sexually Active? N Menses Monthly N HPV Vaccine N Date of Last Pap Smear 08/21/2021 Sexual Problems? N Current Control Method Hysterectom y Obstetrics History GPAL:G 4 P 4 0 0 4 Type Value Full Term 4 Living 4 Total 4 Past Encounters Encounter ID Performer Location Encounter Start Date Encounter Closed Date Diagnosis/Indication Diagnosis SNOMED-CT Code Diagnosis ICD10 Code Diagnosis Note [id number] Cally Pascual MD [place] [address] [address] 08/21/2021 17:27:02 08/22/2021 11:04:33 Gynecologic examination 92622187 Z01.419 Z11.51 Third degr ee uterine prolapse 63437734 N81.3 [id number] Cally Pascual MD [place] [address] [address] 12/26/2022 15:13:46 12/26/2022 15:59:14 Third degree uterine prolapse 73394047 N81.3 Gynecologi c examination 47421009 Z01.419 Z11.51 [id number] Vera Li , [facility] [address] [address] 02/27/2024 18:22:55 03/02/2024 02:41:23 Gynecologic examination 31743680 Z01.419 Suggested Calcium with Vitamin D 1200-1500m g daily. Patient advised to get an annual flu shot in the fall and she could obtain at [facility] or [facility] care clinic. Also to obtain TDap vaccinatio n if you have not had one in the last 10 years. Recommend yearly mammograms . Encouraged monthly self breast exams. Encourage safe sexual practices, to use condoms and limit partners if not already in a monogamous relationsh ip. Engage in daily exercise of low impact aerobic exercise 45-60 minutes 4-5 times weekly. Avoid tobacco and illicit drugs as well as using moderation with alcohol intake less than 1-2 8 oz beverages daily. This lifestyle behavior pattern will lead to less health conditions and longer life span. If BMI greater than 25 weight watchers or dietary consult advised. All questions have been answered. Patient appears to understand informatio n, but if you have any questions please call or respond to this email. Pap/hpv USPSTF recommends against screening for cervical cancer in women older than 65yo, those who've had a hysterecto my for non-cancer indication s, & who have had adequate prior screening & are not otherwise at high risk for cervical cancer. STD Screen declinedGe netic Screen discussedC olon Screen PCPDexa Screen naRoutine Labs PCP Screening mammography 24 063283 Z12.31 Health Concerns Section Related Observation LastModified by Organization Detai ls LastModified Time None Recorded Concern Status LastModified by Organization Details LastModified Time None Recorded Advance Directives Directive None Recorded Payers Insurance Date Sequence Insurance Name Policy Number Policy Freeman Covered Member ID Freeman Member ID Guarantor Name 12/24/2022 1 [employer]OG[employer] [id number] Susie Alvarez [id number] Susie Alvarez 01/07/2023 1 [facility] [id number] Susie Alvarez [id number] Susie Alvarez 02/20/2024 1 [facility] Susie Alvarez [id number] Susie Alvarez 02/26/2024 1 [facility] [id number] Susie Alvarez [id number] Susie Alvarez Notes Date Note Type Note Provider Name and Address Organization Details Recorded Time 08/21/2021 text/html Patient is a 46y o who presents for an annual exam. Menopause 4 years ago.last pap-?mammo-06/2020co lonoscopy-not yet, doctor orderingdexa-noneme nopause-4 yearssexually eoknbd-lpwqchmkhr-s exercise-ydepressio n-deniesdomestic violence-deniestoba forensic accountant-noconcerns- of note, did not mention uterine prolapse until I saw it on exam. She has had it for years and recently saw someone at [facility] regarding surgical repair and plans to go back there. Cally Pascual MD [address], [place], [address], [facility] 08/21/2021 18:20:32 12/26/2022 text/html Patient is a 47y o who presents for an annual exam. Never returned to U urogyn re procidentia. menopause 43yo. no concerns. last pap-08/2021 mammo-11/2021 colonoscopy-03/2022, 10 years dexa-none menopause-y sexually active-y seatbelts-y exercise-y depression-denies domestic violence-denies tobacco-n concerns- Cally Pascual MD [address], [place], [address], [facility] 12/26/2022 15:58:53 02/27/2024 text/html Annual [employer] Post-MenopausalRepo rted bypatient.Menopausa l Symptoms:no menopausal symptoms; normal vaginal lubrication Vaginal Bleeding:history of menopause having occurred; no history of post menopausal bleeding Urinary Symptoms:no hematuria; no incontinence; no nocturia; no urinary frequency Vulva:no genital lesion; no vulvar atrophy Vagina:normal vaginal discharge; no vaginal atrophy Breast:no breast lump; no nipple discharge; no breast pain Sexual Complaints:no sexual complaints Psychological Symptoms:no depression; no anxiety Preventive Measures:encourage regular mammograms starting age 40; encourage self breast examination; encourage regular exercise; encourage no tobacco use; needs to schedule mammogram HARJIT Carrera- [address], [place], [address], [facility] 02/29/2024 10:09:24 OBGyn Episode Ob Episode Information Episode Created Date Number of Fetuses Patient Bloodtype Patient rh Status Prepregnancy Weight lbs Domestic Partner Domestic Partner Phone Father Name Jewel Setter Status 08/21/20 21 1 CLOSED Fetus Data First Name Last Name Admitted to NICU Weight (g) Sex Living Outcome Pediatric Complications Fetus ID Race Codes Race Delivery Type M [id number] Primary Michael Calculation Initial Michael Date Initial Exam Date Initial Exam Provider Initial Ultrasound Date Last Menstrual Period Date Ultra Sound Weeks Gestation 0 Eighteen To Twenty Week Michael Update Ultra Sound Date Fundal Height At Umbil Quickening Date Ultra Sound Latest Weeks Gestation Final Michael Confirmed By Final Michael Confirmed Date Final Michael Date Ultra Sound Latest Days Gestation 0 0 Menstrual History Last Menstrual Date Menses Monthly On Bcp Conception Prior Menses Frequency Hcg Plus Date Menarche Onset Age Delivery Information Delivery Date Delivery Type Labor Anesthesia Weeks Gestation Incision Type Labor Labor Length Hrs Delivered By Post Complications Tubal Sterilization Discharge Date Comments 1 Discharge Information Feeding Method Contraceptive Method Maternal HG B and HCT Levels Ob Episode Information Episode Created Date Number of Fetuses Patient Bloodtype Patient rh Status Prepregnancy Weight lbs Domestic Partner Domestic Partner Phone Father Name Jewel Setter Status 08/21/20 21 1 CLOSED Fetus Data First Name Last Name Admitted to NICU Weight (g) Sex Living Outcome Pediatric Complications Fetus ID Race Codes Race Delivery Type M [id number] Primary Michael Calculation Initial Michael Date Initial Exam Date Initial Exam Provider Initial Ultrasound Date Last Menstrual Period Date Ultra Sound Weeks Gestation 0 Eighteen To Twenty Week Michael Update Ultra Sound Date Fundal Height At Umbil Quickening Date Ultra Sound Latest Weeks Gestation Final Michael Confirmed By Final Michael Confirmed Date Final Michael Date Ultra Sound Latest Days Gestation 0 0 Menstrual History Last Menstrual Date Menses Monthly On Bcp Conception Prior Menses Frequency Hcg Plus Date Menarche Onset Age Delivery Information Delivery Date Delivery Type Labor Anesthesia Weeks Gestation Incision Type Labor Labor Length Hrs Delivered By Post Complications Tubal Sterilization Discharge Date Comments 7 Discharge Information Feeding Method Contraceptive Method Maternal HG B and HCT Levels Ob Episode Information Episode Created Date Number of Fetuses Patient Bloodtype Patient rh Status Prepregnancy Weight lbs Domestic Partner Domestic Partner Phone Father Name Jewel Setter Status 08/21/20 21 1 CLOSED Fetus Data First Name Last Name Admitted to NICU Weight (g) Sex Living Outcome Pediatric Complications Fetus ID Race Codes Race Delivery Type M [id number] Vaginal Delivery Michael Calculation Initial Michael Date Initial Exam Date Initial Exam Provider Initial Ultrasound Date Last Menstrual Period Date Ultra Sound Weeks Gestation 0 Eighteen To Twenty Week Michael Update Ultra Sound Date Fundal Height At Umbil Quickening Date Ultra Sound Latest Weeks Gestation Final Michael Confirmed By Final Michael Confirmed Date Final Michael Date Ultra Sound Latest Days Gestation 0 0 Menstrual History Last Menstrual Date Menses Monthly On Bcp Conception Prior Menses Frequency Hcg Plus Date Menarche Onset Age Delivery Information Delivery Date Delivery Type Labor Anesthesia Weeks Gestation Incision Type Labor Labor Length Hrs Delivered By Post Complications Tubal Sterilization Discharge Date Comments 6 Discharge Information Feeding Method Contraceptive Method Maternal HG B and HCT Levels Ob Episode Information Episode Created Date Number of Fetuses Patient Bloodtype Patient rh Status Prepregnancy Weight lbs Domestic Partner Domestic Partner Phone Father Name Jewel Setter Status 08/21/20 21 1 CLOSED Fetus Data First Name Last Name Admitted to NICU Weight (g) Sex Living Outcome Pediatric Complications Fetus ID Race Codes Race Delivery Type [id number] Primary Michael Calculation Initial Michael Date Initial Exam Date Initial Exam Provider Initial Ultrasound Date Last Menstrual Period Date Ultra Sound Weeks Gestation 0 Eighteen To Twenty Week Michael Update Ultra Sound Date Fundal Height At Umbil Quickening Date Ultra Sound Latest Weeks Gestation Final Michael Confirmed By Final Michael Confirmed Date Final Michael Date Ultra Sound Latest Days Gestation 0 0 Menstrual History Last Menstrual Date Menses Monthly On Bcp Conception Prior Menses Frequency Hcg Plus Date Menarche Onset Age Delivery Information Delivery Date Delivery Type Labor Anesthesia Weeks Gestation Incision Type Labor Labor Length Hrs Delivered By Post Complications Tubal Sterilization Discharge Date Comments 5 Discharge Information Feeding Method Contraceptive Method Maternal HG B and HCT Levels
--- OUTSIDE RECORDS SUMMARY | 2025-04-17 07:48 | XMS_ITS | Clinical Summary ---
Author Organization [facility] [employer] [employer] Address [address] [place] [address] Care Team Providers Care Geophysical Prospecting Surveyor Name Role Phone Tobias Ackerman MD Primary Care Provider [phone] Source Comments [facility],non-owned Affiliates and Associated Physician Practices is amultiple site organization consisting of ambulatory clinics and hospital sitesin [place], [place], [place] and [place]. This disclosure is being madepursuant to the Care Everywhere program and may not contain all information available regarding this patient. Last updated 18.[facility] Allergies No known active allergies Medications * Be aware that medications may not be up to date on this document. Alwaysverify current medications with the patient. lisinopril-hydroC HLOROthiazide (PRINZIDE; ZESTORETIC) 20-25 MG tablet Take 1 (one) tablet by mouth once daily Active IRON, FERROUS SULFATE, PO Take 35 mg by mouth once daily Active Cholecalciferol (VITAMIN D3) 400 UNITS Take 400 Units by mouth once daily Active aspirin EC (ECOTRIN) 81 MG tablet Take 1 (one) tablet by mouth once daily Active isosorbide mononitrate CR 24hr (IMDUR) 30 MG tablet Take 1 (one) tablet by mouth once daily Active albuterol HFA (PROVENTIL; VENTOLIN; PROAIR) 108 (90 Base) MCG/ACT inhaler Inhale 2 (two) puffs by mouth every 6 hours as needed Active metFORMIN (Glucophage) 500 MG tabletIndications :Diabetes 1.5, managed as type 2 (HCC) Take 2 (two) tablets by mouth 2 times daily with morning and evening meal 360 tablet 5 3 Active empagliflozin (Jardiance) 25 MG tabletIndications :Diabetes mellitus type 2 with hyperosmolarity, uncontrolled (HCC) Take 1 (one) tablet by mouth once daily 30 tablet 11 3 Active linaGLIPtin (Tradjenta) 5 MG tabletIndications :Diabetes mellitus type 2 with hyperosmolarity, uncontrolled (HCC) Take 1 (one) tablet by mouth once daily 30 tablet 11 3 Active fenofibrate (Tricor) 145 MG tablet Take 1 (one) tablet by mouth once daily Active lancetsIndication s:Diabetes mellitus type 2 with hyperosmolarity, uncontrolled (HCC) Use 1 (one) Each once daily 100 Each 11 3 Active carvedilol (Coreg) 25 MG tablet Take 1 (one) tablet by mouth 2 times daily with morning and evening meal 3 Active simvastatin (Zocor) 40 MG tablet Take 1 (one) tablet by mouth every evening 3 Active senna-docusate (Senokot-S) 8.6-50 MG tablet Take 1 (one) tablet by mouth 2 times daily 30 tablet 3 Active oxyCODONE, immediate release, (Roxicodone) 5 MG tabletIndications :Essential hypertension Take 1 (one) tablet by mouth every 6 hours as needed for Pain 12 tablet 3 Active oxyCODONE, immediate release, (Roxicodone) 5 MG tabletIndications :Preop testing Take 1 (one) tablet by mouth every 4 hours as needed for Pain 12 tablet 3 Discontinu ed(No Pharm No AVS) Active Problems Problem Noted Date Diagnosed Date Preop testing 10/08/2023 Stage 2 chronic kidney disease 02/25/2023 0 02/25/2023 Vitamin D deficiency 02/25/2023 02/25/2023 Anemia in chronic kidney disease 12/18/2022 02/25/2023 Type 2 diabetes mellitus, wi th long-term current use of insulin 05/03/2022 Chronic obstructive pulmonary disease 06/06/2020 02/25/2023 Atherosclerosis of renal artery 06/03/2020 02/25/2023 Encounter for health-related screening 0 02/25/2023 Hypertriglyceridemia 06/03/2020 02/25/2023 Iron deficiency 06/03/2020 02/25/2023 Overview (02/25/2023): b12 nromal Microalbuminuria 06/03/2020 02/25/2023 Proteinuria 06/02/2020 02/25/2023 Essential hypertension 05/03/2020 Exposure to SARS-associated coronavirus 05/03/20 20 02/25/2023 Hyperlipidemia 05/03/2020 02/25/2023 Obesity 05/03/2020 02/25/2023 Diabetes mellitus 05/02/2020 02/25/2023 Umbilical hernia with obstruction, without gangr jennifer 02/20/2018 Overview (12/07/2019): Overview: Added automatically from request for surgery [id number] Family History Medical History Relation Name Comments Cancer - Stomach Other maternal aunt Relation Name Status Comments Other maternal aunt Social History Tobacco Use Types Packs/Day Years Used Date Smoking Tobacco: Never Passive Smoke Exposure: Never Smokeless Tobacco: Never Tobacco Cessation:Counseling Given: Not Answered Alcohol Use Standard Drinks/Week Comments Not Currently 0 (1 standard drink = 0.6 oz pur e alcohol) PHQ-2 Answer Date Recorded PHQ2 TOTAL SCORE 0 02/14/2023 Comments No Sex and Gender Information Value Date Recorded Sex Assigned at Not on file Legal Sex Female 9:35 AM LIABILITY CLAIMS EXAMINER Gender Identity Not on file Sexual Orientation Not on file Last Filed Vital Signs Vital Sign Reading Time Taken Comments Blood Pressure 110/70 11/18/2023 11:03 AM LIABILITY CLAIMS EXAMINER Pulse 72 10/09/2023 6:50 AM LIABILITY CLAIMS EXAMINER Temperature 36.4 C (97.5 F) 11/18/2023 11:03 AM LIABILITY CLAIMS EXAMINER Respiratory Rate 18 10/09/2023 12:2 5 PM LIABILITY CLAIMS EXAMINER Oxygen Saturation 100% 10/09/2023 9:15 AM LIABILITY CLAIMS EXAMINER Inhaled Oxygen Concentration - - Weight 65.2 kg (143 lb 12.8 oz) 024 11:03 AM LIABILITY CLAIMS EXAMINER Height 152.4 cm (5') 11/18/2023 11:03 AM LIABILITY CLAIMS EXAMINER Body Mass Index 28.08 11/18/2023 11:03 AM LIABILITY CLAIMS EXAMINER Plan of Treatment Health Maintenance Due Date Last Done Comments COLOGUARD (AGES 45-75) - COLON CA SCREENING 1974 COLON MONITORING 1974 COLONOSCOPY - COLON CA SCREENING 1974 CT COLONOGRAPHY - COLON CA SCREENING 1974 Colorectal Cancer Screening 1974 FIT - COLON CA SCREENING 1974 FLEX SIG - COLON CA SCREENING 1974 MAMMOGRAM 1974 HIV SCREENING 1989 HEPATITIS C SCREENING 07/31/1992 DTAP/TDAP/TD VACCINES (1 - Tdap) 1993 HEPATITIS B VACCINE (1 of 3 - 19+ 3-dose series) 1993 PNEUMOCOCCAL VACCINE 50+ (1 of 2 - PCV) 1993 DIABETES RETINOPATHY SCREENING 05/03/2022 DIABETES-FOOT EXAM WITH MONOFILAMENT 05/03/2022 DIABETES-HGB A1C 03/31/2024 10/01/2023, , 02/14/2023, Additional history exists COVID-19 VACCINE (2 - season) 2024 09/16/2021 ZOSTER VACCINE (1 of 2) 2024 DIABETES-SERUM CREATININE 10/01/20242022, 06/17/2021, 06/17/2021, Additional history exists DEPRESSION SCREENING 11/04/2024 02/14/2023 DIABETES - URINE PROTEIN SCREENING 11/04/2024 06/17/2021 INFLUENZA VACCINE (Season Ended) 2025 10/08/2016, 08/23/2015, 08/18/2014 HIB VACCINE Aged Out No longer eligi ble based on patient's age to complete this topic HPV VACCINE Aged Out No longer eligi ble based on patient's age to complete this topic MENINGOCOCCAL (Group B) VACCINE SHARED DECISION-MAKING Aged Out No longer eligible based on patient's age to complete this topic MENINGOCOCCAL GROUPS A/C/Y/W VACCINE Aged Out No longer eligible based on patient's age to complete this topic Medical Devices Implanted Type Area Generator Assembler Device Identifier Shelf Expiration Date Model / Serial / Lot Sys Ureth Supp Fuad Adv Trnvg Midurethral Implanted:Qty: 1 on 10/08/2023 by Juliet West MD at [facility] N/A: Urethra [employer] 07/01/2026 [id number] / / [id number] Procedures Procedure Name Priority Date/Time Associated Diagnosis Comments BASIC METABOLIC PANEL (CALCIUM TOTAL) Pre-Op 10/01/2023 2:39 PM LIABILITY CLAIMS EXAMINER Preoperative examination HEMOGLOBIN A1C STAT 10/01/2023 2:39 PM LIABILITY CLAIMS EXAMINER Preoperative examination from Last 3 Months or Most Recently Relevant to Health Maintenance Results * (ABNORMAL) HEMOGLOBIN A1C (10/01/2023 2:39 PM LIABILITY CLAIMS EXAMINER) Hemoglobin A1c 7.2(H) <5.7 % 10/01/2023 3:33 PM LIABILITY CLAIMS EXAMINER [facility] Estimated Average Glucose 160 mg/dL 10/01/2023 3:33 PM LIABILITY CLAIMS EXAMINER [facility] Blood BLOOD SPECIMEN / Unknown Venipuncture / Unknown 10/01/2023 2:39 PM LIABILITY CLAIMS EXAMINER 10/01/2023 3:08 PM LIABILITY CLAIMS EXAMINER [facility] - 10/01/2023 3:33 PM LIABILITY CLAIMS EXAMINER HbA1c Interpretation: Normal: < 5.7% Pre-diabetes: 5.7-6.4% Diabetes: Equal to or greater than 6.5% Test results diagnostic of diabetes should be repeated for confirmation. Treatment target values recommended by ADA and other clinical organizations should be used to evaluate metabolic control in patients. This test should not replace glucose testing for patients with Type 1 diabetes, pediatric patients, or women. Falsely low HbA1c results may be observed in patients with clinical conditions that shorten erythrocyte life span or decrease mean erythrocyte age such as the presence of unstable hemoglobin variants, elevated hemoglobin F level or other causes of hemolytic anemia. HbA1c may not accurately reflect glycemic control when clinical conditions that affect erythrocyte survival are present. Severe Iron deficiency anemia may yield falsely high results. Hemoglobin A1c assay should not be used to diagnose or monitor diabetes in patients with malignancy, recent blood transfusion, chronic kidney or liver disease. This method may yield falsely low results when hemoglobin (HbF) exceeds 5% in the specimen. The [place] Alinity assay for the measurement of HbA1c is a National Glycohemoglobin Standardization Program (NGSP) certified method. Juliet West MD LAB - CHEMISTRY ORDERABLES Final Result [facility] [address] [place], [place] [id number] * BASIC METABOLIC PANEL (CALCIUM TOTAL) (10/01/2023 2:39 PM LIABILITY CLAIMS EXAMINER) [facility] Glucose 86 70 - 105 mg/dL 10/01/2023 3:36 PM LIABILITY CLAIMS EXAMINER [facility] Sodium 142 136 - 145 mmol/L 10/01/2023 3:36 PM LIABILITY CLAIMS EXAMINER [facility] Potassium 3.7 3.5 - 5.1 mmol/L 10/01/2023 3:36 PM LIABILITY CLAIMS EXAMINER [facility] Chloride 104 98 - 107 mmol/L 10/01/2023 3:36 PM LIABILITY CLAIMS EXAMINER [facility] CO2 26 22 - 29 mmol/L 10/01/2023 3:36 PM [facility] Calcium 9.9 8.4 - 10.4 mg/dL 10/01/2023 3:36 PM [facility] Anion Gap 12 6 - 16 mmol/L 10/01/2023 3:36 PM LIABILITY CLAIMS EXAMINER [facility] BUN 16 5.3 - 18.7 mg/dL 10/01/2023 3:36 PM [facility] Creatinine 0.72 0.57 - 1.11 mg/dL 10/01/2023 3:36 PM [facility] eGFR by CKD-EPI >90 >=90 mL/min/1.7 3 m2 10/01/2023 3:36 PM [facility] Blood BLOOD SPECIMEN / Unknown Venipuncture / Unknown 10/01/2023 2:39 PM LIABILITY CLAIMS EXAMINER 10/01/2023 3:08 PM LIABILITY CLAIMS EXAMINER us Juliet West MD LAB - CHEMISTRY ORDERABLES Final Result [facility] [address] [place] [address] from Last 3 Months or Most Recently Relevant to Health Maintenance Care Teams Geophysical Prospecting Surveyor Relationship Specialty Start Date End Date Tobias Ackerman MD [address] [place] [id number] PCP - General 05/04/20
--- OUTSIDE RECORDS SUMMARY | 2025-04-17 07:48 | XMS_ITS | Referral Summary ---
Author Organization [facility] [address] [place] [address] Care Team Providers Care Product Test Engineer Name Role Phone Tobias Ackerman MD Primary Care Provider [phone] Allergies No known active allergies Medications isosorbide [...] (02/20/2018): Added automatically from request for surgery [id number] Social History Tobacco Use Types Packs/Day Years [...] 09/02/2021 11:04 PM CDT Plan of Treatment Not on file Medical Devices Implanted Type Area Pastry Cook Apprentice Device Identifier Shelf Expiration Date Model / Serial / Lot Patch Surgical Ventralex St Sepra Sorbaflex Polypropylene Hydrogel Large Inaja Od3.2 In Spring Open Bioresorbable Strap Tension Free Sterile Umbilical Hernia Repair - [id number] Implanted:Qty: 1 on 02/24/2018 by Juliet Sheehan MD at [facility] N/A: Abdomen [employer]/C R Bard 01/01/2020 [id number] / / [id number] Insurance [employer] [facility] CHOICE PLUS Care Teams Product Test Engineer Relationship Specialty Start Date End Date Tobias Ackerman MD PCP - General 02/06/20
--- OUTSIDE RECORDS SUMMARY | 2025-04-17 07:48 | XMS_ITS | Encounter Summary ---
Author Organization [facility] Address [address] [place] [address] Care Team Providers Care Senior Software Analyst Name Role Phone Tobias Ackerman MD Primary Care Provider [phone] Encounter Details Date Type Department Care Team (Late st Contact Info) Description 04/23/2023 Telephone [facility] - HARVEST MANAGER [address], [facility] [address] [place] [address] Juliet West MD [address] [place] [address] Social History Tobacco Use Types Packs/Day Years [...] on file Legal Sex Female 9:35 AM WEBSPHERE ADMINISTRATOR Gender Identity Not on file Sexual Orientation Not on file COVID-19 Exposure Response Date Recorded In the last 10 days, have yo u been in contact with someone who was confirmed or suspected to have Coronavirus/COVID-19? No / Unsure 03/25/2023 1:29 PM CDT documented as of this encounter Miscellaneous Notes * Telephone Encounter - Alysa Allan - 04/23/2023 11:07 AM CDT Left a message at this number via [employer] service the number [phone] was not working. I need to reschedule the patient surgery date from 09/03/23. Dr West will be unavailable that day. I asked for a call back at [phone] to find another surgery date documented in this encounter Plan of Treatment Not on file documented as of this encounter Visit Diagnoses Not on filedocumented in this encounter Care Teams Senior Software Analyst Relationship Specialty Start Date End Date Tobias Ackerman MD [address] [place] [id number] PCP - General 05/04/20 documented as of this encounter
[2025-04-17 08:52] LABS: Cholesterol 246 mg/dL (0-200); HDL Direct 40 mg/dL; Triglycerides 216 mg/dL (<150)
[2025-04-17 09:02] LABS: LDL Cholesterol Direct 136 mg/dL
[2025-04-17 09:35] LABS: Creatinine Urine 11.5 mg/dL; MALB Creatinine Ratio < 52.2 mg/g (0-30); Microalbumin Urine Random < 6.0 mg/L (0-16.7)
[2025-04-17 09:47] LABS: Hemoglobin A1C > 14.0 % (<5.7)
== END 2025-04-17 07:45 | disposition home or self-care (01) ==
LOC: ANHLAB 07:46
PROVIDERS: PCP Emergency Medicine; Visit Provider Emergency Medicine
DX: E78.5 Hyperlipidemia, unspecified (principal); E11.9 Type 2 diabetes mellitus without complications
CPT/HCPCS: 36415; 80061; 82043; 83036

== ENCOUNTER 2025-06-22 16:07 | Outpatient (CLI) | payer OTHER, SELFPAY ==
--- NOTE | ~2025-06-22 | MM_ITS ---
EXAMINATION: MM screening [facility] BI [address] [place] HISTORY: Screening mammogram TECHNIQUE: Craniocaudal and mediolateral oblique 3-D tomosynthesis images were obtained and synthetic 2-D images were generated. CAD analysis was submitted and interpreted. COMPARISON: 03/21/2023, 11/07/2021, 06/28/2020 BREAST PARENCHYMAL COMPOSITION:Not Dense. There are scattered areas of fibroglandular density. FINDINGS: No suspicious mass, calcification, or architectural distortion are identified in either breast to suggest malignancy. There has been no suspicious interval change. IMPRESSION: No mammographic evidence of malignancy. Recommend routine screening mammography in one year. BI-RADS Category 1: Negative Reviewed, dictated and finalized at location .
== END 2025-06-22 16:08 | disposition home or self-care (01) ==
PROVIDERS: PCP Student in an Organized Health Care Education/Training Program; Visit Provider Student in an Organized Health Care Education/Training Program
DX: Z12.31 Encounter for screening mammogram for malignant neoplasm of breast (principal)
CPT/HCPCS: 77063; 77067